=== PATIENT | male | born 1960 | race Asian ===

== ENCOUNTER 2020-06-20 21:04 | Emergency (ER) | payer OTHER ==
[~2020-06-20] VITALS: Ht 188 cm; Wt 88.9 kg
[2020-06-20 22:02] LABS: POTASSIUM 3.4 mmol/L (3.6-5.2)
[2020-06-20 22:10] LABS: PLATELET COUNT 314 K/uL (142-355)
[2020-06-21 02:05] VITALS: BP 139/99; TEMP 98.7
== END 2020-06-21 02:05 | disposition home or self-care (01) ==
LOC: ED 21:04
PROVIDERS: Family Medicine
DX: J06.9 Acute upper respiratory infection, unspecified (principal); E87.6 Hypokalemia; D72.828 Other elevated white blood cell count; Z86.19 Personal history of other infectious and parasitic diseases; Z20.828 Contact with and (suspected) exposure to other viral communicable diseases
CPT/HCPCS: 36415; 80053; 80307; 80320; 81000; 82150; 82728; 83605; 83690; 85027; 87040; 87635; 96360; 96365; 96375; 99285; J0696; J2405; J2930; U0003